=== PATIENT | male | born 1990 | race Caucasian/White ===

== ENCOUNTER 2017-04-25 07:54 | Emergency (ER) | payer BC ==
[~2017-04-25] VITALS: Ht 195.6 cm; Wt 158.8 kg
[2017-04-25] MEDS ORDERED: NORCO 5-325 TA1 EACH PO (08:50)
[2017-04-25] MEDS ORDERED: KEFLEX500 MG PO (09:05)
[2017-04-25 09:17] VITALS: BP 159/99
[2017-04-30] MEDS ORDERED: ANTIBIOTIC PO (12:50)
[2017-04-30] MEDS ORDERED: SILVADENE20 GM TOP (13:22)
[2017-04-30] MEDS ORDERED: NAPROSYN500 MG PO (13:22)
[2017-04-30] MEDS ORDERED: NORCO 5-325 TA1 EAC1 PO (13:22)
== END 2017-04-25 09:19 | disposition home or self-care (01) ==
LOC: ER 07:54
DX: T23.272A Burn of second degree of left wrist, initial encounter (principal); T22.212A Burn of second degree of left forearm, initial encounter; F17.210 Nicotine dependence, cigarettes, uncomplicated; X11.8XXA Contact with other hot tap-water, initial encounter; Y93.89 Activity, other specified; Y92.89 Other specified places as the place of occurrence of the external cause; Y99.8 Other external cause status